=== PATIENT | female | born 1950 | race Caucasian/White ===

== ENCOUNTER 2016-08-23 08:32 | Day surgery (SDC) | payer OTHER, BC ==
[~2016-08-23] VITALS: Ht 157.5 cm; Wt 70.3 kg
[~2016-08-23 08:32] MED LIST: BISOPROLOL-HCT1 EACH PO; CALCIUM-MAGNES1 EA10 PO; CRESTOR20 MG PO; LEXAPRO10 MG PO; LO-DOSE ASPIRIN81 M2 PO; LOFIBRA,TRIGLI160 MG PO; NORVASC10 MG PO; VENTOLIN HFA18 GM IH; VITAMIN E400 UNIT PO; WOMEN'S DAILY1 EACH PO; XANAX0.25 MG PO
[2016-08-23 09:35] VITALS: BP 126/67
[2016-08-23 13:25] VITALS: BP 141/70
[2016-08-23 13:59] VITALS: BP 147/70
== END 2016-08-23 14:20 | disposition home or self-care (01) ==
LOC: SDC 08:32
PROC: 0SNN0ZZ Release Left Metatarsal-Phalangeal Joint, Open Approach (ICD-10-PCS; principal; 2016-08-23)
DX: M20.22 Hallux rigidus, left foot (principal); I10 Essential (primary) hypertension; J45.909 Unspecified asthma, uncomplicated; Z79.82 Long term (current) use of aspirin; Z79.51 Long term (current) use of inhaled steroids; R01.1 Cardiac murmur, unspecified
CPT/HCPCS: 73630; C1769; J0690; J1100; J2250; J7050; S0020